=== PATIENT | male | born 1985 | race Caucasian/White ===

== ENCOUNTER → 2019-04-16 | Outpatient (CLI) | payer OTHER | END | disposition home or self-care (01) | LOC: MRI 04-12 13:00 | DX: S39.012A Strain of muscle, fascia and tendon of lower back, initial encounter (principal); M51.27 Other intervertebral disc displacement, lumbosacral region; M48.061 Spinal stenosis, lumbar region without neurogenic claudication; M54.18 Radiculopathy, sacral and sacrococcygeal region; M51.36 Other intervertebral disc degeneration, lumbar region; M12.88 Other specific arthropathies, not elsewhere classified, other specified site; X58.XXXA Exposure to other specified factors, initial encounter; Y93.89 Activity, other specified; Y92.89 Other specified places as the place of occurrence of the external cause; Y99.8 Other external cause status ==

== ENCOUNTER → 2020-12-01 | Outpatient (CLI) | payer OTHER | END | disposition home or self-care (01) | LOC: MRI 12:58 | PROVIDERS: ATTEND General Practice | DX: M51.27 Other intervertebral disc displacement, lumbosacral region (principal); M54.18 Radiculopathy, sacral and sacrococcygeal region ==